=== PATIENT | female | born 1970 | race Caucasian/White ===

== ENCOUNTER 2017-01-12 07:01 | Day surgery (SDC) | payer OTHER ==
[~2017-01-12] VITALS: Ht 170.2 cm; Wt 74.8 kg
[~2017-01-12 07:01] MED LIST: ADVAIR 100/501 DISK IH; ALLERGY RELIE15.8 ML BOTH NARES; CLARITIN10 M3 PO; CYTOMEL5 MCG PO; FLEXERIL10 MG PO; LORATADINE10 M2 PO; MEDROL DOSEPAK4 MG PO; NORCO 5/3251 TABLET PO; PREDNISONE10 MG PO; SKELAXIN800 MG PO; SYNTHROID125 MCG PO; TYLENOL ARTHRI650 MG PO; ZOFRAN ODT4 MG PO
[2017-01-12 07:40] VITALS: BP 128/68
[2017-01-12] MEDS ORDERED: NORCO 5/3251 TABLET PO (09:42)
[2017-01-12 10:25] VITALS: BP 102/64
[2017-01-12 11:15] VITALS: BP 134/88
== END 2017-01-12 11:20 | disposition home or self-care (01) ==
LOC: SDC 07:01
DX: N92.0 Excessive and frequent menstruation with regular cycle (principal); N84.0 Polyp of corpus uteri; J45.909 Unspecified asthma, uncomplicated; H90.5 Unspecified sensorineural hearing loss; E89.0 Postprocedural hypothyroidism
CPT/HCPCS: 88305; J1100; J2405; J3010; Q0175

== ENCOUNTER 2017-07-03 03:43 | Emergency (ER) | payer OTHER ==
[~2017-07-03] VITALS: Ht 167.6 cm; Wt 79.3 kg
[2017-07-03] MEDS ORDERED: VALIUM5 MG PO (04:07)
[2017-07-03] MEDS ORDERED: MEDROL DOSEPAK4 MG PO (04:07)
[2017-07-03] MEDS ORDERED: PERCOCET 5/31 TABLET PO (04:07)
[2017-07-03 04:36] VITALS: BP 116/81
== END 2017-07-03 04:36 | disposition home or self-care (01) ==
LOC: EME 03:43
DX: M54.5 Low back pain (principal); M62.830 Muscle spasm of back; K21.9 Gastro-esophageal reflux disease without esophagitis; H91.90 Unspecified hearing loss, unspecified ear; Z88.2 Allergy status to sulfonamides; Z88.0 Allergy status to penicillin; Z88.6 Allergy status to analgesic agent
CPT/HCPCS: 99281; 99283; J7512